=== PATIENT | male | born 1955 | race Caucasian/White ===

== ENCOUNTER 2022-07-18 16:21 | Outpatient (CLI) | payer OTHER, SELFPAY ==
[2022-07-18 10:16] LABS: Albumin* 4.7 g/dL (3.3-5.0); Chloride* 101 mmol/L (96-114)
[2022-07-18 10:19] LABS: Carbon Dioxide* 28 mmol/L (20-32)
[2022-07-18 10:21] LABS: Sodium* 138 mmol/L (135-149)
[2022-07-18 10:23] LABS: Potassium* 4.1 mmol/L (3.6-5.1)
[2022-07-18 10:24] LABS: Cholesterol* 153 mg/dL (90-199)
[2022-07-18 10:25] LABS: Alanine Aminotransferase* 28 U/L (4-50); Alkaline Phosphatase* 50 U/L (40-150); Aspartate Amino Transferase* 29 U/L (12-35); Bilirubin Total* 0.7 mg/dL (0.1-1.5); Blood Urea Nitrogen* 23 mg/dL (7-30); Creatinine* 1.2 mg/dL (0.5-1.5); Estimated Glomerular Filt Rate 66 ml/min; Glucose* 98 mg/dL (60-115); Triglycerides* 184 mg/dL (40-149)
[2022-07-18 10:26] LABS: Calcium* 9.3 mg/dL (8.4-10.6); HDL Cholesterol* 46 mg/dL (>=40); LDL Cholesterol Calculated 70 mg/dL (<100)
== END 2022-07-18 16:22 | disposition home or self-care (01) ==
PROVIDERS: PCP Family Medicine; Visit Provider Family Medicine
DX: E78.5 Hyperlipidemia, unspecified (principal)
CPT/HCPCS: 80053; 80061

== ENCOUNTER 2023-07-13 08:02 | Outpatient (CLI) | payer MEDICARE, OTHER, SELFPAY | END 2023-07-13 08:03 | disposition home or self-care (01) | LOC: NFLDREF 07-15 20:06 | PROVIDERS: PCP Family Medicine; Referring Provider Family Medicine; Visit Provider Family Medicine | DX: E78.5 Hyperlipidemia, unspecified (principal); I10 Essential (primary) hypertension | CPT/HCPCS: 80053; 80061 ==

== ENCOUNTER 2024-07-17 08:01 | Outpatient (CLI) | payer MEDICARE, OTHER, SELFPAY ==
--- OUTSIDE RECORDS SUMMARY | 2024-07-18 11:27 | XMS_ITS | Clinical Summary ---
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 Active lisinopril-hydrochloro thiazide, 20-25 mg, (PRINZIDE, ZESTORETIC) 20-25 mg per tablet Take 1 Tablet by mouth once daily. Active Active Problems Problem Noted Date Diagnosed Date Colon polyp 04/27/2023 Overview (04/27/2023): Colonoscopy 04/2023 TA, repeat in 5 years Social History Tobacco Use Types Packs/Day Years Used Date Smoking Tobacco: Never Assessed Sex and Gender Information Value Date Recorded Sex Assigned at Not on file Gender Identity Not on file Sexual Orientation Not on file Obstetrics History Last Filed Vital Signs Vital Sign Reading Time Taken Comments Blood Pressure 116/67 04/25/2023 3:29 PM CDT Pulse 64 04/25/2023 3:29 PM CDT Temperature - - Respiratory Rate 16 04/25/2023 3:29 PM CDT Oxygen Saturation 93% 04/25/2023 3:29 PM CDT Inhaled Oxygen Concentration - - Weight - - Height - - Body Mass Index - - Plan of Treatment Health Maintenance Due Date Last Done Comments Tdap 1964 Depression screening for age 12+ 1965 BMI (ht and wt on same day) for age 18+ 1971 Hepatitis C screening for ag e 18-79 1971 Tetanus booster 1973 Lipids for age 45-75 1998 Zoster (shingles) series for age 50+ (1 of 2) 2003 Medicare Wellness for age 65+ 2018 Pneumococcal series for age 65+ (1 of 1 - PCV) 2018 COVID-19 vaccine series ( season) 2024 07/26/2022, 12/31/2021, 07/21/2021, Additional history exists Influenza for age 65+ 05/26/2024 Colonoscopy through age 75 04/25/202804/25, 04/25/2023, 04/25/2023 Procedures Procedure Name Priority Date/Time Associated Diagnosis Comments COLONOSCOPY 04/25/2023 1:56 PM CDT from Last 3 Months or Most Recently Relevant to Health Maintenance Results * COLONOSCOPY (04/25/2023 1:56 PM CDT) 04/25/2023 1:56 PM CDT Narrative Transcriptions Remington Cho MD - 04/25/2023 3:19 PM CDT Patient Name: Derek White Procedure Date: 04/25/2023 Gender: Male Date of : 1955 Admit Type: Outpatient Procedure: Colonoscopy Proceduralist: Remington Cho MD , Cheli Delgado, RN(Nurse), Bertha Gonsalez (Nurse) Indications/Pre-Op Diagnosis: High risk colon cancer surveillance:Personal history of colonic polyps, Last colonoscopy: December 2017 Medications: Fentanyl 100 micrograms IV, Midazolam 4 mgIV, The level of sedation administered wasmoderate Procedure Description: The patient had risks, benefits and alternatives explained to andgave informed consent. The patient had a stable cardiopulmonary status and judged an adequate candidate for conscious sedation. The endoscope [id number] was passed through the anus andadvanced to the cecum, identified by appendiceal orifice and ileocecal valve.The colonoscopy was performed without difficulty. The patient toleratedthe procedure well. The quality of the bowel preparation was good. The ileocecal valve, appendiceal orifice, and rectum were photographed. Complications: No immediate complications. Estimated Blood Loss & Specimen: Estimated blood loss: none. Specimen collected - Yes and sent to Laboratory Findings: The perianal and digital rectal examinations were normal. A 4 mm polyp was found in the ascending colon. The polyp was semi-pedunculated. The polyp was removed with a cold snare. Resection and retrieval were complete. Two sessile polyps were found in the descending colon. The polypswere 2 to 3 mm in size. These polyps were removed with a cold biopsyforceps. Resection and retrieval were complete. The exam was otherwise without abnormality on direct and retroflexion views. Impressions/Post-Op Diagnosis: - One 4 mm polyp in the ascending colon, removed with a cold snare. Resected and retrieved. - Two 2 to 3 mm polyps in the descending colon, removed with a cold biopsy forceps. Resected and retrieved. - The examination was otherwise normal on direct and retroflexionviews. Recommendation: - Patient has a contact number available for emergencies. The signsand symptoms of potential delayed complications were discussed with the patient. Return to normal activities tomorrow. Written discharge instructions were provided to the patient. - Resume previous diet. - Continue present medications. - Await pathology results. - Repeat colonoscopy is recommended. The colonoscopy date will be determined after pathology results from today's exam become available for review. Moderate Sedation: A time out was performed before the procedure. Moderate (conscious) sedation was administered by the endoscopy nurse and supervised bythe endoscopist. The following parameters were monitored: oxygensaturation, heart rate, blood pressure, EKG, CO2, respiratory rate, adequacy of pulmonary ventilation and reponse to care. Please refer to the patient's medical record flowsheets and nursing notes for moderate sedation details. Total physician intraservice time was 19 minutes. Remington Cho MD 04/25/2023 3:19:31 PM This report has been signed electronically. Note Initiated On: 04/25/2023 1:56 PM Procedure Code(s): --- Professional --- 21392, Colonoscopy, flexible; with removalof tumor(s), polyp(s), or other lesion(s) bysnare technique 06838, 59, Colonoscopy, flexible; withbiopsy, single or multiple Diagnosis Code(s): --- Professional --- Z86.010, Personal history of colonicpolyps D12.2, Benign neoplasm of ascending colon D12.4, Benign neoplasm of descending colon CPT copyright 2021 [employer]. All rights reserved. The codes documented in this report are preliminary and upon baby nurse reviewmay be revised to meet current compliance requirements. Scope In: 2:53:40 PM Scope Withdrawal Time 0 hours 9 minutes 17 seconds Scope Out: 3:10:10 PM Remington Cho MD PROCEDURE ORD from Last 3 Months or Most Recently Relevant to Health Maintenance Care Teams [employer] Actor Relationship Specialty Start Date End Date Emir Fregoso MD [address] [id number] PCP - General Family Practice 01/26/23
== END 2024-07-17 08:02 | disposition home or self-care (01) ==
LOC: NFLDREF 07-18 11:26
PROVIDERS: PCP Family Medicine; Referring Provider Family Medicine; Visit Provider Family Medicine
DX: E78.5 Hyperlipidemia, unspecified (principal); I10 Essential (primary) hypertension
CPT/HCPCS: 80053; 80061

== ENCOUNTER 2025-07-22 08:46 | Outpatient (CLI) | payer MEDICARE, OTHER, SELFPAY | END 2025-07-22 08:47 | disposition home or self-care (01) | LOC: NFLDREF 07-23 19:50 | PROVIDERS: PCP Family Medicine; Referring Provider Family Medicine; Visit Provider Family Medicine | DX: E78.5 Hyperlipidemia, unspecified (principal); I10 Essential (primary) hypertension; Z12.5 Encounter for screening for malignant neoplasm of prostate | CPT/HCPCS: 80053; 80061; G0103 ==